=== PATIENT | female | born 1995 | race Hispanic/Latino ===

== ENCOUNTER 2024-09-19 13:32 | Emergency (ER) | payer SELFPAY ==
[~2024-09-19] VITALS: Ht 160 cm; Wt 79.4 kg
[2024-09-19 13:44] VITALS: BP 119/65; PULSE 98; RESP 20; TEMP 98.6; O2SAT 99
[2024-09-19] MEDS ORDERED: ONDA-243 PO (13:45)
--- NOTE | 2024-09-19 13:46 | ERN ---
General Chief Complaint: Generalized Body Aches Stated Complaint: BODY PAINS Time Seen by MD: 13:37 History of Present Illness Initial Comments 29F presents for nausea, abd pain, all over numbness especially the face, and anxiety. Patient took a Manjaro injection just prior to symptoms starting. Not her prescription. No wheezing, no resp distress, no rashes, no swelling. Allergies: Coded Allergies: ibuprofen (Unverified Allergy, Intermediate, 09/19/24) Past Medical History Past Medical History: No Pertinent History Past Surgical History: Other Surgical History Other: TUBAL Female( History) LMP: Sep 10, 2024 : 3 Para: 3 ROS Dictation CONSTITUTIONAL: No chills, no fever, no weakness, no diaphoresis, no malaise. HEAD/FACE: No signs of trauma. EENT: No eye pain, no blurred vision, no tearing, no double vision, no ear pain, no ear discharge, no nose pain, no nasal congestion, no throat pain, no throat swelling, no mouth pain. RESPIRATORY: No cough, no orthopnea, no SOB, no stridor, no wheezing. CARDIOVASCULAR: No chest pain, no edema, no palpitations, no syncope. GASTROINTESTINAL/ABDOMINAL: No abdominal pain, no constipation, no diarrhea, no nausea, no vomiting. GENITOURINARY: No abnormal discharge, no dysuria, no frequent urination, no hematuria. No complaints of pain in the genitals. MUSCULOSKELETAL: No back pain, no gout, no joint pain, no joint swelling, no muscle pain, no muscle stiffness, no neck pain. INTEGUMENTARY: No change in color, no change in hair/nails, no dryness, no lesion, no lumps, no rash. NEUROLOGICAL/PSYCH: No anxiety, not depressed, no emotional problem, no headache, no numbness, no pre-existing deficit, no history of seizures, no tremors, no weakness. HEMATOLOGIC/LYMPHATIC: Not anemic, no history of blood clots, no apparent bleeding, no bruising, glands not swollen. All Systems Negative, Except as Noted. Physical Exam Physical Exam Dictation VITAL SIGNS: Reviewed. GENERAL APPEARANCE: Alert, oriented x3, no acute distress. HEAD AND FACE: Non-traumatic. EYES: PERRL, pink conjunctivas, eyelid no trauma, anterior chamber clear. EARS: Pinnas intact and no signs of trauma or erythema. Ear canals clear and no discharge. TMs no erythema. NOSE: No discharge, no bleeding. OROPHARYNX: Mouth normal, teeth no caries, tongue pink. Pharynx clear, no erythema. Tonsils no exudates, no abscesses noted. Mucous membrane moist. NECK: Supple, non-tender, no thyromegaly, no masses, no JVD, no bruits. BREAST: Deferred. CHEST: No tenderness, no crepitus, no paradoxical movement, no retractions. LUNGS: Clear, well-ventilated, symmetric, no rales, no wheezing, no rhonchi, no stridor, good breath sounds bilaterally. HEART: Regular rate, regular rhythm, no murmur, no gallops. VASCULAR: No peripheral edema. ABDOMEN: Soft, positive bowel sounds, nondistended, no guarding, nontender, no rebound, no masses no hepatomegaly, no splenomegaly, no Rodrigez's sign, no hernias. RECTAL: Deferred. GENITAL: Deferred. NEUROLOGICAL: Normal speech, gross motor function intact, gross sensory function intact. MUSCULOSKELETAL: Neck nontender, full range of motion, back nontender, full range of motion. EXTREMITIES: Nontender, full range of motion. SKIN: Color pink, dry, no turgor, no rash, no lacerations, no abrasions, no contusions. LYMPHATICS: Deferred. MDM CC: Anxiety type symptoms abdominal pain status post Mounjaro injection Historian: Patient Comorbidities: None Limitations by social determinants of health: None Differential diagnosis: Medication side effects Vital signs stable Clinical exam is unremarkable Given Zofran Low suspicion for any life threats. No labs indicated no imaging indicated. I suspect the symptoms are out due to the Monjaro injections. Will DC. ED Course Orders Procedure Category Date Status Time Ondansetron Odt 4mg PHA 09/19/24 Transmitted Tab (Zofran 4mg Odt) 14:00 Vital Signs Date Time Temp Pulse Resp B/P (MAP) Pulse Ox O2 Delivery O2 Flow Rate FiO2 09/19/24 13:37 98.6 98 20 119/65 99 Room Air 0 DX & DISP Disposition: Discharge Departure Impression: Primary Impression: Medication side effect Condition: Stable Scripts Ondansetron (Ondansetron Odt) 4 Mg Tab.rapdis 1 TAB PO Q6HPRN PRN for nausea/vomiting for 3 Days, #9 TAB 0 Refills Prov: GEMMA CLEMENT DO 09/19/24 Additional Instructions: Your symptoms are consistent with the side effects of Mounjaro. You may feel gastrointestinal symptoms for up to a week. I have prescribed ondansetron to use for nausea. Follow up with the primary doctor. Referrals: NONE (PCP) GEMMA CLEMENT DO Sep 19, 2024 13:46
[2024-09-19] MEDS: ondanSETRON ODT 4MG TAB SL ONE (14:08)
== END 2024-09-19 14:30 | disposition home or self-care (01) ==
LOC: EDH 13:32
DX: R10.9 Unspecified abdominal pain (principal); T50.995A Adverse effect of other drugs, medicaments and biological substances, initial encounter; R11.0 Nausea; R20.0 Anesthesia of skin; R45.89 Other symptoms and signs involving emotional state; Z88.6 Allergy status to analgesic agent; Y92.89 Other specified places as the place of occurrence of the external cause
CPT/HCPCS: 99283